=== PATIENT | male | born 1975 | race Caucasian/White ===

== ENCOUNTER 2019-03-02 09:12 | Emergency (ER) | payer MEDICAID ==
[~2019-03-02] VITALS: Ht 182.9 cm; Wt 81.6 kg
[2019-03-02 09:39] VITALS: BP 123/85
[2019-03-02 10:01] LABS: Basophils # (auto) 0 uL; Basophils % (auto) 0.4 % (0.0-2.0); Eosinophils # (auto) 0.1 uL; Eosinophils % (auto) 1.5 % (0.0-7.0); Hematocrit 44.6 % (41.0-53.0); Hemoglobin 14.9 g/dL (13.5-17.5); Lymphocytes # (auto) 1.6 uL; Lymphocytes % (auto) 15.9 % (10.0-50.0); Mean Corpuscular Hemoglobin 29.8 pg (28.0-32.0); Mean Corpuscular Hgb Conc. 33.5 g/dL (32.0-36.0); Monocytes # (auto) 0.9 uL; Monocytes % (auto) 9.5 % (0.0-12.0); Neutrophils # (auto) 7.1 uL; Neutrophils % (auto) 72.7 % (37.0-80.0); Platelet Count (auto) 255 10^3/uL (140-450); Red Blood Cells 5.01 10^6/uL (4.5-5.90); Red Cell Distribution Width 13.5 % (11.8-14.3); White Blood Cell 9.7 10^3/uL (4.4-10.8)
[2019-03-02] MEDS ORDERED: CLINDAMYCIN 600 MG/4 ML VL IM ONE (10:15)
[2019-03-02] MEDS ORDERED: cefTRIAXone W LIDOCAINE 1 GM IM IM ONE (10:15)
[2019-03-02 10:22] LABS: Albumin 3.8 g/dL (3.4-5.0); BUN/Creatinine Ratio 11.5; Calcium 8.7 mg/dL (8.5-10.1); INR 0.97 (0.9-1.15); Partial Thromboplastin Time 29.9 sec (23.64-32.05); Potassium 3.7 mmol/L (3.5-5.1)
[2019-03-02 10:25] LABS: Bilirubin, Total 0.6 mg/dL (0.2-1.0); Total Protein 8.2 g/dL (6.4-8.2)
== END 2019-03-02 12:37 | disposition left against medical advice (07) ==
LOC: ER 09:15
DX: L03.115 Cellulitis of right lower limb (principal); F17.210 Nicotine dependence, cigarettes, uncomplicated
CPT/HCPCS: 36415; 80053; 83605; 85025; 85610; 85730; 87040; 94761; 99283; J0696

== ENCOUNTER 2020-02-14 15:59 | Emergency (ER) | payer MEDICAID ==
[~2020-02-14] VITALS: Ht 180.3 cm; Wt 83.9 kg
[2020-02-14 16:49] VITALS: BP 117/81
== END 2020-02-14 19:40 | disposition left against medical advice (07) ==
LOC: ER 15:59
DX: S30.860A Insect bite (nonvenomous) of lower back and pelvis, initial encounter (principal); Z53.21 Procedure and treatment not carried out due to patient leaving prior to being seen by health care provider; W57.XXXA Bitten or stung by nonvenomous insect and other nonvenomous arthropods, initial encounter; Y93.89 Activity, other specified; Y92.89 Other specified places as the place of occurrence of the external cause; Y99.8 Other external cause status

== ENCOUNTER 2023-02-11 06:50 | Emergency (ER) | payer MEDICAID ==
[~2023-02-11] VITALS: Ht 175.3 cm; Wt 84.5 kg
[2023-02-11 07:30] VITALS: BP 133/96; PULSE 99; RESP 18; TEMP 97.8; O2SAT 99
[2023-02-11] MEDS: KETOROLAC TROMETH 60MG/2ML VIAL IM ONE ×2 (07:49→08:00)
[2023-02-11] MEDS: HYDROcodone-ACET 5/325MG TAB PO ONE ×2 (07:50→08:00)
== END 2023-02-11 08:31 | disposition left against medical advice (07) ==
LOC: ER 06:50
DX: M54.50 Low back pain, unspecified (principal); F17.210 Nicotine dependence, cigarettes, uncomplicated
CPT/HCPCS: 99281; J1885